=== PATIENT | female | born 1975 | race African-American/Black ===

== ENCOUNTER 2017-05-14 02:30 | Emergency (ER) | payer SELFPAY ==
[~2017-05-14] VITALS: Ht 175.3 cm; Wt 106.0 kg
[2017-05-14] MEDS ORDERED: ALBUTEROL (0.083%) 2.5MG/3ML NEB HHN STA (03:03)
[2017-05-14] MEDS ORDERED: PREDNISONE 20MG TABLET PO STA (03:03)
[2017-05-14] MEDS ORDERED: IPRATROPIUM BROMIDE (0.02%) 0.5MG/2.5ML NEB HHN STA (03:03)
[2017-05-14] MEDS ORDERED: PREDNISONE 20MG TABLET ONE (04:09)
[2017-05-14 05:30] VITALS: BP 151/85
== END 2017-05-14 05:30 | disposition home or self-care (01) ==
LOC: ER 02:42
DX: J44.1 Chronic obstructive pulmonary disease with (acute) exacerbation (principal); I10 Essential (primary) hypertension; F17.200 Nicotine dependence, unspecified, uncomplicated
CPT/HCPCS: 71045; 94640; 99283; J7512; J7611; Z7610

== ENCOUNTER 2020-05-04 05:26 | Emergency (ER) | payer MEDICAID ==
[~2020-05-04] VITALS: Ht 165.1 cm; Wt 68.0 kg
[2020-05-04 06:12] LABS: EOSINOPHILS % 1.9 % (0.0-5.0); HEMATOCRIT. 29.5 % (36.0-48.0); HEMOGLOBIN. 8.7 g/dL (12.0-16.0); LYMPHOCYTES % 12.1 % (20.0-50.0); MEAN CORPUSCULAR HEMOGLOBIN 18.8 pg (28.0-32.0); MEAN CORPUSCULAR VOLUME 63.7 fL (81.0-99.0); MEAN PLATELET VOLUME 8.4 fl (7.4-10.4); MONOCYTES % 5.2 % (2.0-8.0); NEUTROPHILS % 79.8 % (40.0-76.0); PLATELET 228 x1000/uL (130-400); RED BLOOD CELL COUNT 4.63 mill/uL (4.2-5.4); RED CELL DISTRIBUTION WIDTH 20.3 % (11.6-14.6)
[2020-05-04 06:22] LABS: CHLORIDE 102 mEq/L (98-107)
[2020-05-04 06:32] LABS: B-HCG QUANTITATIVE 201 mIU/mL (<3)
[2020-05-04 06:48] LABS: PLATELET ESTIMATE NORMAL
[2020-05-04] MEDS ORDERED: POTASSIUM CHLORIDE 20MEQ TABLET SR PO ONE (08:45)
[2020-05-04 09:15] VITALS: BP 173/98
== END 2020-05-04 09:46 | disposition home or self-care (01) ==
LOC: ER 05:26
DX: O03.9 Complete or unspecified spontaneous abortion without complication (principal); R10.9 Unspecified abdominal pain; I10 Essential (primary) hypertension
CPT/HCPCS: 36415; 76801; 80053; 81025; 84702; 85025; 86850; 86900; 93005; 99285